=== PATIENT | female | born 1995 | race Caucasian/White ===

== ENCOUNTER 2017-07-28 09:55 | Inpatient (IN) | payer OTHER ==
--- NOTE | 2017-07-27 22:47 | HP ---
HISTORY OF PRESENT ILLNESS: This is a 21-year-old white female G3, P1-0-1-1 at 39 weeks gestation, b eing admitted for elective repeat section. EDC of 08/04/2017. The patient has had an uncom plicated course. She has a history of 1 prior section at [place]. She delivere d a 7 pound 6 ounce baby girl. She has been followed by Dr. Oconnor. PAST MEDICAL HISTORY: History of reflux. PAST SURGICAL HISTORY: x1. FAMILY HISTORY: Father, mother and siblings with history of mental issues. Patient does have a hist ory of depression. SOCIAL HISTORY: Patient has a history of tobacco use, quit in 10/2015. She does not drink alcohol o r use recreational drugs. She has a history of drug issues in the past. REVIEW OF SYSTEMS: As above. PHYSICAL EXAMINATION: VITAL SIGNS: Blood pressure 126/72, weight 162. GENERAL: In no acute distress. HEENT: Clear. HEART: Regular rate and rhythm. LUNGS: Clear. ABDOMEN: Gravid. EXTREMITIES: With no edema. LABORATORY AND X-RAY FINDINGS: GBS negative, HIV negative, GC chlamydia negative. TSH normal. Hepa titis B negative. HIV negative, RPR negative, rubella immune. O positive blood type. Urine culture negative. History of positive drug screen for marijuana. ASSESSMENT: 1. A 39-week intrauterine . 2. Prior section. 3. History of positive marijuana drug screen. 4. History of depression. PLAN: 1. Routine anesthesia preop. 2. Routine L&D orders. 3. Plan repeat low transverse section at noon on 07/28/2017.
[2017-07-28] MEDS ORDERED: Lactated Ringer's 1,000 ML IV SCH (09:57)
[2017-07-28] MEDS ORDERED: Ondansetron HCl/PF 4 MG/2 ML Vial IVP PRN ×3 (09:57→13:19)
[2017-07-28] MEDS ORDERED: Acetaminophen 500 MG TAB PO PRN (09:57)
[2017-07-28] MEDS ORDERED: Promethazine HCl 25 MG/ML VIAL IM PRN ×2 (09:57→13:19)
[2017-07-28] MEDS ORDERED: CEFAZOLIN/Water 2 GM/20 ML SYRINGE SLOW IVP SCH (10:30)
[2017-07-28] MEDS ORDERED: Bicitra 30 ML UDCUP PO SCH (10:30)
[2017-07-28 10:49] VITALS: BMI 26.4
[2017-07-28 11:17] LABS: Hematocrit 36.6 % (36.0-47.0); Mean Platelet Volume 7.7 fL (7.4-10.4); Red Blood Cell (RBC) Count 4.03 mill/uL (4.20-5.40); White Blood Cell (WBC) Count 8.5 thou/uL (4.8-10.8)
[2017-07-28] MEDS ORDERED: Morphine PF 1 MG/ML SYR ONE (11:51)
[2017-07-28] MEDS ORDERED: Ondansetron HCl/PF 4 MG/2 ML Vial ONE ×2 (11:52→16:20)
[2017-07-28] MEDS ORDERED: Oxytocin 10 UNITS/ML VIAL ONE (11:52)
[2017-07-28] MEDS ORDERED: PHENYLEPHRINE-NS 100 MCG/ML 10 ML SYRINGE ONE ×2 (11:52→16:20)
[2017-07-28] MEDS ORDERED: Ketorolac Tromethamine 30 MG/ML VIAL ONE ×2 (11:52→16:20)
[2017-07-28] MEDS ORDERED: Fentanyl 100 MCG/2 ML VIAL ONE (12:36)
[2017-07-28] MEDS ORDERED: Eucerin (Mineral Oil/Petrolatum,White) 30 gm Jar TOP PRN (13:19)
[2017-07-28] MEDS ORDERED: Promethazine HCl 25 MG SUPP PR PRN (13:19)
[2017-07-28] MEDS ORDERED: Meperidine HCl/PF 25 MG/ML VIAL SLOW IVP PRN (13:19)
[2017-07-28] MEDS ORDERED: diphenhydrAMINE 50 MG/ML VIAL IVP PRN (13:19)
[2017-07-28] MEDS ORDERED: HYDROmorphone 2 MG/ML VIAL SLOW IVP PRN (13:19)
[2017-07-28] MEDS ORDERED: Naloxone HCl 0.4 mg/ml Vial IV PRN (13:19)
[2017-07-28] MEDS ORDERED: Naloxone HCl 0.4 mg/ml Vial IVP PRN ×2 (13:19)
--- NOTE | 2017-07-28 13:26 | OP ---
DATE OF SERVICE: 07/28/2017 PREOPERATIVE DIAGNOSES: 1. Term . 2. Prior section. POSTOPERATIVE DIAGNOSES: 1. Term . 2. Prior section. PROCEDURE: Repeat low transverse section. SURGEON: Rober Castillo M.D. CAFETERIA ATTENDANT: Eduar Tyson M.D. ANESTHESIA: Spinal. DESCRIPTION OF PROCEDURE: This 21-year-old white female G3, P1, taken to the operating room. She wa s placed in the supine position. The abdomen was prepped and draped after spinal anesthesia. The pr evious scar was removed. The incision was extended down to the fascia which was opened wit hout incident. Peritoneum was opened by blunt dissection. Low transverse uterine incision was made. Fluid was noted to be clear. Delivered the baby without difficulty. Baby did breathe and cry jocelynn rously upon delivery. The cord blood was collected. The placenta was delivered manually intact. Ce rvix was dilated. A 2 layer closure of the uterus was performed. The peritoneum was closed with mat tress stitch incorporating the rectus fascia. The skin was closed with harvey. HEMOSTASIS: Adequate. ESTIMATED BLOOD LOSS: 600 mL. Mother and baby did well.
[2017-07-28] MEDS ORDERED: Communication Order-Pharmacy FS SCH (13:30)
[2017-07-28] MEDS ORDERED: Ketorolac Tromethamine 30 MG/ML VIAL IVP SCH (13:30)
[2017-07-28] MEDS ORDERED: Acetaminophen 325 MG TAB PO PRN (15:37)
[2017-07-28] MEDS: Ketorolac Tromethamine 30 MG/ML VIAL IVP PRN (18:57)
[2017-07-28] MEDS: Ferrous Sulfate 325 MG TAB PO SCH (21:50)
[2017-07-29] MEDS: HYDROcodone/Acetaminophen 5/325 mg Tablet PO PRN ×6 (00:24→23:31)
[2017-07-29] MEDS: Simethicone Chewable 80 MG TAB PO PRN ×3 (05:29→21:06)
[2017-07-29 06:25] LABS: Hematocrit 35.1 % (36.0-47.0); Mean Platelet Volume 7.6 fL (7.4-10.4); Red Blood Cell (RBC) Count 3.77 mill/uL (4.20-5.40); White Blood Cell (WBC) Count 6.8 thou/uL (4.8-10.8)
[2017-07-29] MEDS: Ketorolac Tromethamine 30 MG/ML VIAL IVP PRN (08:14)
[2017-07-29] MEDS: Ferrous Sulfate 325 MG TAB PO SCH ×2 (08:16→21:12)
[2017-07-29] MEDS: Ibuprofen 800 MG TAB PO SCH ×3 (08:28→23:31)
[2017-07-29] MEDS ORDERED: Adacel (T-DAP) 0.5 ML VIAL IM ONE (09:00)
[2017-07-30] MEDS: HYDROcodone/Acetaminophen 5/325 mg Tablet PO PRN ×4 (04:13→17:29)
[2017-07-30] MEDS: Simethicone Chewable 80 MG TAB PO PRN ×3 (04:14→21:31)
[2017-07-30] MEDS: Ibuprofen 800 MG TAB PO SCH ×2 (08:55→15:32)
[2017-07-30] MEDS: Docusate (Surfak) 240 MG CAP PO SCH ×2 (08:55→21:31)
[2017-07-30] MEDS: Ferrous Sulfate 325 MG TAB PO SCH ×2 (08:55→21:32)
[2017-07-30 20:08] VITALS: TEMP 97.7
--- NOTE | 2017-07-30 21:05 | PDOC.EVN ---
Event Note - Event Note Event Note: Pt c/o less than adequate pain control, scant lochia, voiding and cedric po without difficulty Vital Signs (12 hours) Temp Pulse Resp BP BP 07/30/17 20:07 97.7 F 62 16 135/93 H 07/30/17 17:33 58 L 135/90 07/30/17 13:15 98.2 F 60 18 Weight Weight 164 lb Gen NAD resp unlabored abd soft, NT, ND Inc C/D/I with harvey gu. fundus firm below U Laboratory Last Values WBC 6.8 thou/uL (4.8-10.8) 07/29/17 05:39 RBC 3.77 mill/uL (4.20-5.40) L 07/29/17 05:39 Hgb 11.8 g/dL (12.0-16.0) L 07/29/17 05:39 Hct 35.1 % (36.0-47.0) L 07/29/17 05:39 MCV 93.0 fl (81.0-99.0) 07/29/17 05:39 MCH 31.3 pg (27.0-31.0) H 07/29/17 05:39 MCHC 33.7 g/dL (32.0-36.0) 07/29/17 05:39 RDW 12.2 % (11.5-14.5) 07/29/17 05:39 Plt Count 123 thou/uL (130-400) L 07/29/17 05:39 MPV 7.6 fL (7.4-10.4) 07/29/17 05:39 Syphilis IgG/IgM Ab Nonreactive (Nonreactive) 07/28/17 10:30 Hep Bs Antigen Non-Reactive S/CO (NonReactive) 07/28/17 10:30 Blood Type O POSITIVE 07/28/17 10:30 Antibody Screen Not Reportable 07/28/17 10:30 A/P: POD #2 s/p RCD, recovering well, will adjust Golf by pain scale
[2017-07-30] MEDS: HYDROcodone/Acetaminophen 7.5/325 mg Tablet PO PRN (21:31)
[2017-07-31] MEDS: Ibuprofen 800 MG TAB PO SCH ×2 (01:30→08:25)
[2017-07-31] MEDS: HYDROcodone/Acetaminophen 7.5/325 mg Tablet PO PRN ×3 (01:30→11:16)
[2017-07-31 08:10] VITALS: BP 113/75
[2017-07-31] MEDS: Docusate (Surfak) 240 MG CAP PO SCH (08:26)
[2017-07-31] MEDS: Ferrous Sulfate 325 MG TAB PO SCH (09:15)
--- NOTE | 2017-07-31 10:56 | PDOC.EVN ---
Event Note - Event Note Event Note: Contacted for pain Rx. Patient s/p section requiring narcotic pain control. MD carbonating stone cleaner not able to prescribe. PCP not availble due to holiday. Spoke with patient at length. Discussed R/B/A. Patient currently controlled on [place] 7.5 mg 2 tabs every 4 to 6 hours. Denies allergies to medications. Reports no unwanted side effects. Will provide enough for 48 hours until PCP office reopens after the holidays. Adiel
--- NOTE | 2017-07-31 20:44 | DIS ---
DATE OF ADMISSION: 07/28/2017 DATE OF DISCHARGE: 07/31/2017 ADMITTING DIAGNOSIS: Intrauterine at 39 weeks, presenting for elective repeat . DISCHARGE DIAGNOSIS: Intrauterine at 39 weeks, presenting for elective repeat . PROCEDURE: Repeat lower transverse section. CONSULTATIONS: None. HOSPITAL COURSE: Patient is a 21-year-old female who presented for a scheduled repeat , whi ch was performed without complications. Patient was subsequently transferred to for [facility] care. Her course has been uncomplicated. Today is postoperative day #3, patient repor ts that she is tolerating p.o., having good pain control with her current regimen, is ambulating and having decreased lochia. PHYSICAL EXAMINATION: VITAL SIGNS: Today, the day of discharge, blood pressure 113/75, temperature 97.7, pulse is 66, resp iratory rate of 20. GENERAL: She appears to be in no acute distress. She is alert and oriented, cooperative and pleasan t to interact with. HEENT: Normocephalic, atraumatic. ABDOMEN: Appropriately tender. Incision is clean, dry, and intact with harvey. There is no erythe ma, induration, or exudate. EXTREMITIES: Nontender with minimal edema bilaterally. Patient's postoperative hemoglobin 11.8, hematocrit 35.7, platelets of 123,000. Patient is being discharged to home on [place] 7.5 mg to be taken every 4 hours as needed for pain, #20 ; ibuprofen 800 mg to be taken 3 times a day as needed for pain, #30. Patient has instructions to follow up with her primary OB, Dr. Rober Castillo in the next few days for staple removal. She also has been given instructions to refrain from driving for the next couple of weeks, also to limit her lifting to 15 pounds for the next 4 to 6 weeks. She has been given instruct ions to seek medical attention. She experiences fever, increasing pain or bleeding, redness, hardnes s or drainage from her incision site.
== END 2017-07-31 12:25 | disposition home or self-care (01) | DRG 766 ==
LOC: L&D 09:55 → 3SW 15:27
PROVIDERS: ADMIT Family Medicine; ATTEND Family Medicine
PROC: 10D00Z1 Extraction of Products of Conception, Low, Open Approach (ICD-10-PCS; principal; 2017-07-28)
DX: O34.219 Maternal care for unspecified type scar from previous cesarean delivery (principal); Z37.0 Single live birth; Z3A.39 39 weeks gestation of pregnancy
CPT/HCPCS: 36415; 51702; 85027; 86780; 86850; 86900; 86901; 87340; J1885; J2274; J2405; J2550; J2590; J3010